=== PATIENT | male | born 1945 | race Caucasian/White ===

== ENCOUNTER 2016-12-01 14:00 | Inpatient (IN) | payer MEDICARE, OTHER ==
[~2016-12-01] VITALS: Ht 185.4 cm; Wt 132.8 kg
--- NOTE | ~2016-12-01 | CON ---
PATIENT'S NAME: GRETCHEN PATIÑO [facility] AGE: 71 Y [address] ROOM: [place] [address] LOCATION: GPCU ADMIT DATE: 12/17/2016 Consultation DISCHARGE DATE: 12/22/2016 FAMILY PHYSICIAN: oSnja Perez ATTENDING PHYSICIAN: Norm Segura REFERRING PHYSICIAN: Blessing Harris MD HISTORY: The patient is a 71-year-old male, known to me. I have placed suprapubic catheter secondary to urinary retention. His catheter is changed every 2 months. The patient is currently hospitalized with multiple medical conditions. The patient is status post left total knee. Staff has noted somewhat bloody drainage from the suprapubic catheter and around the catheter. Since it has been 2 months since his last catheter change, we will proceed with the catheter change. DETAILS OF THE PROCEDURE: The patient's current suprapubic tube was deflated and removed. The area was then prepped with Betadine paint. A 24-Greenlandic Oliva catheter with 5 mL balloon was then introduced. The balloon was inflated. The catheter was then irrigated and irrigated well. The suprapubic site was then cleaned and dried. The patient tolerated the procedure well. PHYSICAL EXAMINATION: The patient's abdomen was obese, but benign. Suprapubic site did not show evidence of infection. ASSESSMENT: The patient with urinary retention. PLAN: Suprapubic catheter change. We will change again in 2 months. MD ALVA MAXWELL/yonatan /[id number] d: 12/22/16 1803 t: 12/28/16 1020, CONSULTATION REPORT
--- NOTE | ~2016-12-01 | OR ---
PATIENT'S NAME: GRETCHEN GAONA [facility] AGE: 71 Y [address] ROOM: [place] [address] LOCATION: GPCU ADMIT DATE: 12/17/2016 OR/Procedure Report DISCHARGE DATE: FAMILY PHYSICIAN: Sonja Perez ATTENDING PHYSICIAN: Norm Guerrier SURGEON: Norm Guerrier MD MATERIAL CLERK: DATE OF PROCEDURE: 12/18/2016 DIAGNOSIS: Severe left knee osteoarthritis. PROCEDURE: Left total knee replacement. ANESTHESIA: General. INDICATIONS: Mr. Gaona's activity is currently limited by severe arthritis of the left knee. He had vascular insufficiency. Cardiology has done interventional procedures to restore adequate blood supply for safe total knee replacement. He has been worked up for coagulopathy. Risks, benefits, and alternatives have all been carefully discussed. DESCRIPTION OF PROCEDURE: Mr. Gaona was taken to the operating room. Prophylactic antibiotics, general anesthetic via an endotracheal tube. Supine on the operating room table. Bump under the left hip. Tourniquet high above the left thigh. Left leg prepared with DuraPrep, draped sterilely. Leg was exsanguinated. Tourniquet inflated to 350 mmHg. A 15 mm midline incision medial to the tibial tubercle and over the center of the patella. Dissection to the extensor mechanism. Medial parapatellar exposure performed. The patella was everted. The patellofemoral ligaments were released. Fat pad was removed. Deep medial collateral ligament was elevated and quad muscles were mobilized. Remnants of the menisci were excised. Remnants of the cruciate ligaments were excised. Using the Hernandez Persona system, the external alignment cutting guide for the tibia was applied. A 2 mm outrigger on the most involved medial side. The guide was locked in place with pins and the cut performed. The femoral cut was made, 5 degrees of valgus. The alignment guide was placed. Excellent alignment with a 10 mm block medial to the anterior suprailiac spine and over the center of the ankle joint. Femur was sized to a 10, cutting guide was placed. Anterior, posterior, and chamfer cuts were made. The tibia, the largest size available was an H. Even this was somewhat on the small size, opted to use a stem in addition with the size component. The guide was placed, drilled for a stem and broached. Patella was prepared for the largest of patella available, a size 41 with a 10 mm section and drilled. Trial components all placed, excellent alignment. The knee was irrigated. Bone was dried. Double batch of Palacos was prepared. Cement was first placed on the tibial component, it was placed. Excess cement PATIENT'S NAME: GRETCHEN GAONA [facility] AGE: 71 Y [address] ROOM: [place] [address] [facility] ADMIT DATE: 12/17/2016 OR/Procedure Report DISCHARGE DATE: FAMILY PHYSICIAN: Sonja Perez ATTENDING PHYSICIAN: Norm Guerrier removed. Femoral component was placed. Excess cement removed. Temporary spacer trial was placed. The knee was extended. The patella was placed. Excess cement removed and held in place with a clamp. Tourniquet was deflated. Hemostasis with bipolar. Once the cement has cured, the trial spacer was removed. Meticulous attention to the hemostasis within the posterior joint. There was no significant bleeding. Again, trialed 14 mm Ultracongruent was the best option. A polyethylene spacer was placed, seated fully. The knee was stable, fully articulated. Patella tracked well, full extension, irrigated. Extensor mechanism closed with multiple layers of #1 Vicryl, subcutaneous tissues were closed with 0 Vicryl, followed by 2-0 Vicryl subcuticular, followed by sandra. Dry sterile dressing placed. Procedure was done without complications. ESTIMATED BLOOD LOSS: From the procedure was less than 50 mL. TOURNIQUET TIME: 90 minutes to recovery room in stable condition. NORM GUERRIER MD DPM/modl /[id number] d: 12/19/16 0117 t: 01/06/17 1004, OPERATIVE SUMMARY
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
--- NOTE | ~2016-12-01 | CON ---
PATIENT'S NAME: GRETCHEN GAONA [facility] AGE: 71 Y [address] ROOM: [place] [address] LOCATION: GPCU ADMIT DATE: 12/17/2016 Consultation DISCHARGE DATE: FAMILY PHYSICIAN: Sonja Perez ATTENDING PHYSICIAN: Norm Segura REFERRING PHYSICIAN: CAROLINE HUANG MD ADDENDUM: The patient was unsure what the recommended duration of anti-platelet therapy following his surgical procedures was. MEDICATIONS UPON ADMISSION: 1. Acetaminophen 1000 mg p.o. q.6 hours p.r.n. pain. 2. Aclidinium bromide 400 mcg inhaled every 12 hours. 3. Albuterol sulfate 1-2 puffs every 4 hours. 4. ASA 81 mg p.o. q.24 hours. 5. Benzonatate 200 mg p.o. t.i.d. 6. Bisoprolol fumarate 5 mg p.o. q.24 hours. 7. Budesonide one amp inhaled b.i.d. 8. Calcium citrate with D one tab p.o. daily. 9. Cholecalciferol one tablet weekly. 10. Cyclobenzaprine 10 mg p.o. at bedtime. 11. Fexofenadine 180 mg p.o. q.24 hours. 12. Finasteride 5 mg p.o. q.24 hours. 13. Fluticasone one spray to the nostril daily. 14. Furosemide 60 mg daily. 15. Gabapentin 100 mg p.o. t.i.d. 16. Hydroxyzine 25 mg p.o. at bedtime. 17. Ipratropium/albuterol p.r.n. 18. Isosorbide 30 mg daily. 19. Levothyroxine sodium 150 mcg daily. 20. Losartan 100 mg p.o. q.24 hours. 21. Lovastatin 20 mg p.o. q.24 hours. 22. MVI 1 p.o. q.24 hours. 23. Omeprazole 40 mg p.o. q.24 hours. 24. Oxybutynin chloride 5 mg p.o. b.i.d. 25. K-Tab 20 mEq p.o. daily. 26. Ropinirole 1 mg p.o. at bedtime. 27. Sertraline 150 mg p.o. q.24 hours. 28. Bactrim DS 1 p.o. b.i.d. for a 10 day course. 29. Sulfasalazine 500 mg p.o. t.i.d. 30. Tamsulosin 0.4 mg p.o. at bedtime. 31. Tetrahydrozoline one drop daily. 32. Tramadol 100 mg p.o. q.i.d. PATIENT'S NAME: GRETCHEN GAONA [facility] AGE: 71 Y [address] ROOM: [address] [place], [place] [address] [facility] ADMIT DATE: 12/17/2016 Consultation DISCHARGE DATE: FAMILY PHYSICIAN: Sonja Perez ATTENDING PHYSICIAN: Norm Segura ALLERGIES: ADVERSE REACTIONS TO MEDICATIONS, ALLERGIES, TRANSFUSIONS: 1. PENICILLINS. 2. TRANSFUSIONS NONE. HABITS: 1. Tobacco 1-1/2 pack per day for 25 years, discontinued since 1980. 2. Probably one-half can of tobacco daily. The patient is not motivated to quit. 3. Alcohol:. a. Teetotaler since 1998. b. The patient used to have an alcoholic beverage weekly. c. Caffeine: None. IMMUNIZATIONS: 1. Positive influenza vaccine. 2. Positive pneumococcal vaccine. 3. Positive tetanus toxoid booster. 4. Positive varicella zoster vaccine. FAMILY HISTORY: Negative for coagulopathy or clotting. His mother of ovarian cancer at 64. SOCIAL HISTORY: The patient was born on a farm outside [place], [place] and attended high school in [place] through the 10th grade. 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 He lives with his in [place]. He has 5 children, all in the [place] area. The patient is not a churchgoer. REVIEW OF SYSTEMS: Negative other than those noted in the history of present illness. PHYSICAL EXAMINATION: VITAL SIGNS: Pulse 72 and regular, blood pressure 105/65, respiratory rate 16, temperature 98.4, height 73 inches, weight 132.8 kg (293 pounds). BMI 38.6 kg/M2. GENERAL: Well-developed, obese, 71-year-old male, in no acute distress. HEENT: Teeth are in poor repair. There are 4-5 stragglers left in his mouth. LYMPH NODES: None palpable. NECK: Without JVD or carotid bruits. SKIN: De La Rosa angiomas. CHEST: Decreased breath sounds. Clear anteriorly. CV: Decreased S1, S2. No audible murmurs, bruits or adventitious sounds. PATIENT'S NAME: GRETCHEN GAONA [facility] AGE: 71 Y [address] ROOM: [place] [address] LOCATION: GPCU ADMIT DATE: 12/17/2016 Consultation DISCHARGE DATE: FAMILY PHYSICIAN: Sonja Perez ATTENDING PHYSICIAN: Norm Segura ABDOMEN: Suprapubic cystotomy. GENITALIA AND RECTAL: Uncircumcised; otherwise not examined. EXTREMITIES: Pulses 2+ in the upper extremities. Actually 1+ in the lower extremities. There is some pretibial hemosiderosis. Prominent Heberden's and Franklin's nodes are scattered throughout the fingers of both hands. The patient has hallux valgus in his toes. NEUROLOGIC: The patient is alert and responsive and moves all 4 extremities. IMPRESSION: A 71-year-old man with an uncharacterized prolonged partial thromboplastin time (and minimally elevated INR today), first documented 08/06/2016 and noted twice since then (the last time on 12/03/2016). Following his initial evaluation in the outpatient area, after the call from Dr. Segura, a mixing study was obtained and the PTT did not correct. Neither the patient nor his family have a history of bleeding diaphyses or thromboembolism. The patient's bleeding with his last vascular procedure was probably due to mechanical factors. The patient probably does not have a factor deficiency as the PTT does not correct with a one-to-one mix. The differential diagnosis includes a subclinical antiphospholipid syndrome or acquired von Willebrand's disease. Patients who have inhibitors of factor VIII and IX are usually quite ill. Conceivably, he could have an acquired inhibitor or factor XI or XII. It is reassuring Mr. Gaona has not clinically experienced excessive bleeding with his recent atherectomy and urologic procedures. We can probably proceed with the left total knee arthroplasty which he certainly needs. Uncharacterized iron deficiency with consequent microcytic anemia. RECOMMEND: DIAGNOSTIC: 1. Hemoccult x3. 2. Antiphospholipid antibodies. 3. Workup the possibility of von Willebrand's disease. TREATMENT: 1. Proceed with surgery. PATIENT EDUCATION: Discussed this approach with the patient and family. MD BUDDY POST/yonatan /[id number] PATIENT'S NAME: GRETCHEN GAONA [facility] AGE: 71 Y [address] ROOM: [place] [address] LOCATION: [facility] ADMIT DATE: 12/17/2016 Consultation DISCHARGE DATE: FAMILY PHYSICIAN: Sonja Perez ATTENDING PHYSICIAN: Norm Segura CC: MD Naz Galvan MD Lyndann M Sokolowski, PA-C d: 12/19/16 1307 t: 12/22/16 0942, CONSULTATION REPORT
--- NOTE | ~2016-12-01 | CON ---
PATIENT'S NAME: GRETCHEN PATIÑO [facility] AGE: 71 Y [address] ROOM: [place] [address] LOCATION: GPCU ADMIT DATE: 12/17/2016 Consultation DISCHARGE DATE: FAMILY PHYSICIAN: Sonja Perez ATTENDING PHYSICIAN: Norm Segura REFERRING PHYSICIAN: CAROLINE HUANG MD ADDENDUM: Acute medical illness is resolved, past surgeries, injuries: 2015 - lumbar laminectomy L2-L3, L3-L4, L4-L5; plus diskectomy L2-L3, L3-L4 for acute cauda equina syndrome. DAV MORENO MD GKB/modl /[id number] d: 12/19/16 1341 t: 12/22/16 0944, CONSULTATION REPORT
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
[~2016-12-01 14:00] MED LIST: ADVAIR 250-501 EACH INH; ALLEGRA180 MG PO; ASPIR 8181 MG PO; ASPIRIN EC81 MG PO; ATARAX25 MG PO; ATROVENT I0.5 MG/2.5 INH; AZULFIDINE500 MG PO; BACID CAPLET1 EACH PO; BENZONATATE200 MG PO; CALCIUM + VITA1 EACH PO; CELEBREX200 MG PO; CIPRO250 MG PO; COZAAR100 MG PO; CPAP INH; CYCLOBENZAPRINE10 MG PO; DITROPAN5 MG PO; DOXYCYCLINE100 MG PO; DRISDOL 5050000 UNIT PO; DULERA 100 MCG/51 EA INH; FLOMAX0.4 MG PO; FLONASE 50 MCG/16 GM NOSE; GLUCAGON/GLUCAGE1 MG SUB-Q; GLUCOPHAGE XR500 MG PO; GLUCOSE1 EACH PO; IMDUR30 MG PO; IPRAT-ALBUT 0.5-3 ML INH; IPRATROPIU0.2 MG/1 M INH; K-TAB ER20 MEQ PO; LASIX40 M1 PO; LEVOXYL150 MCG PO; LEVOXYL50 MCG PO; LOVASTATIN20 MG PO; LOVENOX 4040 MG/0.4 SUB-Q; MIRALAX17 GM PO; MOBIC15 MG PO; MOBIC7.5 MG PO; NEURONTIN100 MG PO; NOVOLOG100 UNIT/M SUB-Q; OXYGEN M-15 INH; OYSTER SHELL C1 EAC4 PO; PERCOCET 5-3251 EACH PO; PRILOSEC40 MG PO; PROSCAR5 MG PO; PULMICORT0.5 MG/2 M INH; REQUIP1 MG PO; SULFADIAZINE PO; TUDORZA PRESS400 MCG PO; TYLENOL EXTRA500 MG PO; TYLENOL WITH C1 EACH PO; ULTRAM50 MG PO; VENTOLIN HFA8 GM INH; VITAL-D RX TAB1 EACH PO; VITAMIN B COMP1 EACH PO; ZEBETA5 M1 PO; ZOLOFT100 MG PO; ZYRTEC10 MG PO; [UNRECOGNIZED DRUG - OTHER] PO; [UNRECOGNIZED DRUG - OTHER] PO
[2016-12-02] MEDS ORDERED: FLOMAX0.4 MG PO (13:46)
[2016-12-02] MEDS ORDERED: DITROPAN5 MG PO (13:46)
[2016-12-02] MEDS ORDERED: CITRACAL+D(315M1 TAB PO (13:46)
[2016-12-02] MEDS ORDERED: BENZONATATE200 MG PO (13:46)
[2016-12-02] MEDS ORDERED: MEVACOR20 MG PO (13:47)
[2016-12-02] MEDS ORDERED: MULTIVITAMINS1 EAC2 PO (13:47)
[2016-12-02] MEDS ORDERED: PLAVIX75 MG PO (13:48)
[2016-12-02] MEDS ORDERED: NEURONTIN100 MG PO (13:48)
[2016-12-02] MEDS ORDERED: DRISDOL 5050000 UNIT PO (13:53)
[2016-12-02] MEDS ORDERED: REQUIP1 MG PO (13:54)
[2016-12-02] MEDS ORDERED: PROSCAR5 MG PO (13:56)
[2016-12-02] MEDS ORDERED: PROAIR RESPICL90 MCG INH (13:57)
[2016-12-02] MEDS ORDERED: TUDORZA PRESS400 MCG INH (13:58)
[2016-12-02] MEDS ORDERED: DUONEB INH (13:59)
[2016-12-17] MEDS ORDERED: HYDROXYZINE HCL25 MG PO (09:40)
[2016-12-17] MEDS ORDERED: LASIX20 MG PO (09:40)
[2016-12-17] MEDS ORDERED: VISINE15 ML OPHTH (09:41)
[2016-12-17] MEDS ORDERED: PROSCAR5 MG PO (09:42)
[2016-12-17] MEDS ORDERED: COZAAR100 MG PO (09:44)
[2016-12-17] MEDS ORDERED: FLOMAX0.4 MG PO (09:45)
[2016-12-17] MEDS ORDERED: DITROPAN5 MG PO (09:46)
[2016-12-17 10:46] LABS: INR - (THERAPEUTIC) 1.15 (0.92-1.07); PROTIME 12.1 SECONDS (9.8-11.4)
[2016-12-17 10:59] LABS: PTT 1 HR 38 SECONDS (25-32); PTT-MIXING STUDY 42 SECONDS (25-32)
[2016-12-17] MEDS ORDERED: BACTRIM DS1 TAB PO (14:40)
--- NOTE | 2016-12-17 17:31 | NUR ---
Significant Event: From [facility] at 1500. Awaiting clearance for OR tomorrow. Suprapubic cath intact. C-Pap at HS. Diabetic, no accuckeck orders at this time. Dr Rios here, see chart for orders. O2 at 2L. Follow up:
--- NOTE | 2016-12-18 04:27 | NUR ---
Significant Event: Alert/oriented x3. Was scheduled for surgery yesterday, postponed until today due to clearance. PTT was 42. Accuchecks AC, HS - 103 at HS - 0 Units per mild sliding scale. Saline lock left lateral forearm. VSS, 2nd SBP was 159, others in 130s, 140s. Suprapubic catheter - 2450 mls out dark yellow urine. CPAP with 2 LPM, 2 LPM per nasal cannula while awake. NPO since midnight. No foot pumps, contraindicated due to Peripheral Vascular Disease. Scheduled Flexeril at HS; [place] at 2106, has slept mostly throughout night, is hard to awake. Follow up:
--- NOTE | 2016-12-18 04:38 | NUR ---
Hematest stools order.
--- NOTE | 2016-12-18 10:20 | NUR ---
0800: I changed his peterson catheter bag, pt states it has not been changed for over two months. It was very foul smelling and visibly unclean.
[2016-12-18 16:20] LABS: CPK 85 IU/L (35-332)
--- NOTE | 2016-12-18 18:47 | NUR ---
Significant Event: Pt up from PACU at 1745. VSS, slightly hypotensive. Placed on telemetry for c/o chest pain in PACU. 4-5L/NC keep sats >90%. IV intact. Oliva intact and drainage well. Pain controlled with Dilaudid BILINGUAL SPEECH LANGUAGE PATHOLOGIST. Dressing C/D/I. CSM WNL. Follow up:
[2016-12-18 19:37] LABS: ANION GAP 13.7 (10.0-19.0); CALCIUM 7.7 mg/dL (8.5-10.5); CREATININE 1.5 mg/dL (0.6-1.3); POTASSIUM 4.7 mMol/L (3.7-5.1)
[2016-12-18 22:51] LABS: CPK 139 IU/L (35-332)
[2016-12-19 04:45] LABS: BASOPHIL % 0.2 %; EOSINOPHIL % 0.1 %; HEMOGLOBIN 9.3 g/dL (11.0-16.0); IMMATURE GRANULOCYTE # 0.1 K/uL (0.0-0.3); IMMATURE GRANULOCYTE % 0.9 %; LYMPHOCYTE # 1.4 K/uL (0.8-4.0); LYMPHOCYTE % 11.3 %; MCH 25.8 pg (27.0-34.0); MCV 83.1 fl (83.0-98.0); MONOCYTE % 7.9 %; MPV 10.5 fl (9.4-12.4); NEUTROPHIL # (ANC) 10.1 K/uL (1.4-9.0); NEUTROPHIL % 79.6 %; NRBC % 0 /100WBC (0-0.00); PLATELET COUNT 209 K/uL (150-450); RBC 3.61 M/uL (3.50-5.50); RDW-CV 19.5 % (11.9-14.6); WBC 12.7 K/uL (4.0-11.0)
[2016-12-19 05:06] LABS: CPK 197 IU/L (35-332)
--- NOTE | 2016-12-19 05:08 | NUR ---
Significant Event: Alert/oriented x3. Accuchecks AC, HS, at HS was 157, O units per mild sliding scale. Dilaudid FEDERAL JUDICIAL LAW CLERK, turned lockout to 60 minutes at 0400, gave Dilaudid 2 mg PO at 0356. CPAP at night, 4 LPM O2 per nasal cannula. Removed CPAP at 0400 due to his moving in bed, accidentally removing it. ETCO2 monitoring. Tele, no calls. VSS. CSM WNL. Plan to dangle him bedside before end of shift. IV infusing in left lateral arm. Dressing C/D/I. EZ wrap. Suprapubic catheter - drained 375 mls. Follow up:
[2016-12-19 05:13] LABS: ANION GAP 12.5 (10.0-19.0); CALCIUM 7.7 mg/dL (8.5-10.5); CREATININE 2.6 mg/dL (0.6-1.3); MAGNESIUM 2.2 mg/dL (1.8-2.6); POTASSIUM 5.5 mMol/L (3.7-5.1)
[2016-12-19 09:22] LABS: BLOOD URINE 250 /UL (NEGATIVE); COLOR URINE YELLOW (YELLOW); GLUCOSE URINE NEGATIVE (NEGATIVE); KETONE URINE NEGATIVE (NEGATIVE); LEUKOCYTES URINE 500 /UL (NEGATIVE); NITRITE URINE POSITIVE (NEGATIVE); PROTEIN URINE 100 mg/dL (NEGATIVE); TURBIDITY URINE 3+ (CLEAR); UROBILINOGEN URINE NORMAL (NORMAL)
[2016-12-19 09:34] LABS: WBC URINE 20-50 #/HPF (NEGATIVE)
[2016-12-19 09:35] LABS: BACTERIA URINE FEW (NEGATIVE); EPITHELIAL URINE RARE #/HPF (NEGATIVE)
[2016-12-19 11:00] LABS: BICARBONATE 21.1 mmol/L (18.0-23.0); PCO2 42 mmHg (35-45); PO2 64 mmHg (80-90)
[2016-12-19 11:31] LABS: ANION GAP 14.2 (10.0-19.0); CALCIUM 7.7 mg/dL (8.5-10.5); CREATININE 3.4 mg/dL (0.6-1.3); POTASSIUM 5.2 mMol/L (3.7-5.1)
--- NOTE | 2016-12-19 13:28 | NUR ---
Significant Event: A/O, MOHEGAN. HAS BEEN RESTLESS, ATTEMPED TO DANGLE AT BEDSIDE, TOLERATED POORLY.HAD BEEN RESTARTED ON DILAUDID RETAIL MAINTENANCE TECHNICIAN DURING NIGHT FOR KNEE PAIN , RETAIL MAINTENANCE TECHNICIAN DC'D THIS PER MD ORDER. HAS SUPRAPUBIC CATH ,CATH IRRIGATED WELL PATIENT REPORTS HAS BEEN 2 MONTHS AGO SINCE CATH WAS CHANGED...HAD 500 MLBOLUS OF NS.HAD ALBUMIN THIS AM. LASST AT BS WAS 108...NEEDS ENC TO EAT.. CSM GOOD TO LEFT LEG. FARHEEN WRAP D/I...USES O2 AND CPAP AT HOME.. Follow up:
--- NOTE | 2016-12-19 17:08 | NUR ---
Significant Event: PT A&O x3. VSS, O2 at 4L per nasal cannula. PT is on endtidal monitoring. IV patent to L)FA. Suprapubic cath intact, drainage around insertion site, to see, is to change it out. Dressing intact to L)knee, pulses thready in feet. Pain well controlled with previously given norco. PT repositioned in bed. Family at bedside. Follow up:
[2016-12-19 18:47] LABS: CREATININE 2.7 mg/dL (0.6-1.3)
[2016-12-19 18:48] LABS: ANION GAP 11.7 (10.0-19.0); CALCIUM 7.4 mg/dL (8.5-10.5)
[2016-12-19 18:49] LABS: POTASSIUM 4.7 mMol/L (3.7-5.1)
[2016-12-19 19:38] LABS: ANION GAP 12.3 (10.0-19.0); CALCIUM 7.5 mg/dL (8.5-10.5); CREATININE 2.6 mg/dL (0.6-1.3); POTASSIUM 4.3 mMol/L (3.7-5.1)
--- NOTE | 2016-12-20 01:14 | NUR ---
PT. IS NOT WEARING CPAP TONIGHT DUE TO NAUSEA.
[2016-12-20 03:26] LABS: MCV 82.8 fl (83.0-98.0); MPV 10.3 fl (9.4-12.4); RBC 2.73 M/uL (3.50-5.50); RDW-CV 20.4 % (11.9-14.6)
[2016-12-20 03:28] LABS: HEMATOCRIT 22.6 % (37.0-53.0); HEMOGLOBIN 7.1 g/dL (11.0-16.0); MCHC 31.4 gm/dL (32.0-36.5); PLATELET COUNT 137 K/uL (150-450)
[2016-12-20 03:45] LABS: ANION GAP 12.2 (10.0-19.0); CALCIUM 7.3 mg/dL (8.5-10.5); CREATININE 1.9 mg/dL (0.6-1.3); MAGNESIUM 2.2 mg/dL (1.8-2.6); POTASSIUM 4.2 mMol/L (3.7-5.1)
[2016-12-20 04:05] LABS: ABSOLUTE NEUTROPHIL CT (ANC) 5.3 K/uL (1.4-9.0); BANDED NEUTROPHIL # 0.6 K/uL (0.0-0.1); BANDED NEUTROPHILS % 8 %; LYMPHOCYTE # 1.4 K/uL (0.8-4.0); LYMPHOCYTE % 20 %; MONOCYTE # 0.3 K/uL (0.0-1.0); SEGMENTED NEUTROPHIL # 4.8 K/uL (1.4-9.0); SEGMENTED NEUTROPHIL % 68 %
--- NOTE | 2016-12-20 05:00 | NUR ---
Significant Event:A/0 X 3, HAS REMAINED IN BED TURNED Q2. REMAINS ON 4L 02 AND ETCO2 MONITORING. ALL OTHER VSS, AFEBRILE. COOPERATIVE THIS EVENING. PAIN BIGGEST ISSUE. 1 NORCO WAS GIVEN WHICH DID NOT DO ANYTHING. AFTER THAT STARTED GIVEN 4 MG PO DILUIDID Q4 WHICH HAS BEEN WORKING, GIVEN LAST AT 0223. ALSO ICE PACKS OFF AND ON. SUPRAPUBIC CATH IS TO BE CHANGED BY JOHNNY, ACTUAL CATH TUBE IS IN ROOM AT BEDSIDE. HAD 700 UOP. Follow up:
[2016-12-20 13:38] LABS: HEMATOCRIT 23.5 % (37.0-53.0); MCH 25.9 pg (27.0-34.0); MCHC 30.2 gm/dL (32.0-36.5); MCV 85.8 fl (83.0-98.0); PLATELET COUNT 129 K/uL (150-450); RBC 2.74 M/uL (3.50-5.50); RDW-CV 20.8 % (11.9-14.6); WBC 7.7 K/uL (4.0-11.0)
[2016-12-20 13:58] LABS: HEMOGLOBIN 7.1 g/dL (11.0-16.0)
[2016-12-20 14:02] LABS: ABSOLUTE NEUTROPHIL CT (ANC) 6.9 K/uL (1.4-9.0); BANDED NEUTROPHIL # 0.5 K/uL (0.0-0.1); BANDED NEUTROPHILS % 7 %; LYMPHOCYTE # 0.5 K/uL (0.8-4.0); LYMPHOCYTE % 7 %; MONOCYTE # 0.2 K/uL (0.0-1.0); SEGMENTED NEUTROPHIL # 6.3 K/uL (1.4-9.0); SEGMENTED NEUTROPHIL % 82 %
[2016-12-20 16:29] LABS: ANION GAP 12.1 (10.0-19.0); CALCIUM 7.8 mg/dL (8.5-10.5); CREATININE 1.5 mg/dL (0.6-1.3); POTASSIUM 4.1 mMol/L (3.7-5.1)
--- NOTE | 2016-12-20 17:14 | NUR ---
Significant Event: PT. A/O X3 THIS A.M. FOUND PT. LATER DAY WITHOUT 02 ON, CONFUSED TO SURROUNDINGS AND SHORT OF BREATH. ETCO2 32. SATS 90%. PLACED ON BIPAP PER RT. HBG 7.1 THIS A.M. AND AGAIN AT 1430. CHANGED LT. KNEE DRESSING TO ISLAND BARRIER. HAS INTACT SAYDA. LT. LEG SWOLLEN FROM UPPER THIGH TO LOWER CALF. Follow up: NEEDS TWO UNITS PRBC'S. AND LASIX IV BETWEEN, INFUSING THEM SLOWLY. HEMATEST STOOL. NONE ON DAYSHIFT. ONLY LT. ARM B/P'S HAS FISTULA IN RT. ARM
[2016-12-21 05:24] LABS: HEMATOCRIT 27.4 % (37.0-53.0); HEMOGLOBIN 8.7 g/dL (11.0-16.0); MCH 26.2 pg (27.0-34.0); MCHC 31.8 gm/dL (32.0-36.5); MCV 82.5 fl (83.0-98.0); MPV 9.9 fl (9.4-12.4); PLATELET COUNT 143 K/uL (150-450); RBC 3.32 M/uL (3.50-5.50); WBC 8.7 K/uL (4.0-11.0)
--- NOTE | 2016-12-21 05:30 | NUR ---
Significant Event: RECIEVED 2 UNITS RBC'S WITH 40 IV LASIX BETWEEN. HE HAS BEEN NAUSEOUS OFF AND ON THE ENTIRE EVENING WITH PROJECTILE EMESIS. HOOKED UP SUCTION IN ROOM. ZOFRAN GIVEN X 2. LUNGS REMAIN WHEEZY AND COARSE, RT TREATMENTS DO HELP FOR A WHILE. NEVER HAD ANY PAIN THIS EVENING AND NEVER REQUESTED ANY PAIN MEDS. ONLY SCHEDULED TYLENOL GIVEN. Follow up:
[2016-12-21 05:41] LABS: ANION GAP 9.8 (10.0-19.0); BLOOD UREA NITROGEN 20 mg/dL (6-24); CALCIUM 7.8 mg/dL (8.5-10.5); CHLORIDE 106 mMol/L (96-110); CO2 27 mMol/L (22-32); POTASSIUM 3.8 mMol/L (3.7-5.1); SODIUM 139 mMol/L (135-145)
[2016-12-21 05:43] LABS: ESTIMATED GFR (MDRD EQUATION) > 60
[2016-12-21 06:17] LABS: ABSOLUTE NEUTROPHIL CT (ANC) 7.9 K/uL (1.4-9.0); BANDED NEUTROPHIL # 0.3 K/uL (0.0-0.1); BANDED NEUTROPHILS % 4 %; LYMPHOCYTE # 0.5 K/uL (0.8-4.0); LYMPHOCYTE % 6 %; MONOCYTE # 0.2 K/uL (0.0-1.0); SEGMENTED NEUTROPHIL # 7.6 K/uL (1.4-9.0); SEGMENTED NEUTROPHIL % 87 %
--- NOTE | 2016-12-21 10:02 | NUR ---
A - PT SCREENED D/T LOS. PT S/P L) TKA. GLU 142, BUN/ELECTRICAL DESIGN ENGINEER 20/1.0. PT W/ 1+ EDEMA TO FEET/ANKLES. PT W/ NAUSEA YESTERDAY EVENING. DIET: DIABETIC W/ INTAKE 10-25%. TRIED TO VISIT BUT PT SLEEPING SOUNDLY. EST NEEDS: [id number] KCALS, 83-100 GM PROTEIN, 1 ML/KCAL FLUIDS. D - AT RISK W/ INADEQUATE ORAL INTAKE R/T DECREASED APPETITE AEB INTAKE RECORD. I - GOAL: 50% OR BETTER INTAKE BY DISMISSAL. M/E - 1) WILL OFFER GLUCERNA BID W/ BF AND DINNER AND F/U ON INTAKE IN 2-4 DAYS.
--- NOTE | 2016-12-21 14:15 | NUR ---
Introduced self and role of care management to patient. Patient lives in [place] with his . He says he is going home tomorrow. He says he went as far today with therapy as he goes at home. He uses a scooter at home. Has a walker and 2 canes at home. Has a ramp into his home. He has O2 at home and uses it 24/7. Every thing he uses is on one level. His bathroom is handicapped accessible. His son comes after work and makes their evening meal for them. Daughter helps as needed also. He has had [facility] in the past and would like it again. He would like to use [facility] [place]. Says his daughter will help but her just broke his leg so she has to take care of him too. He is uncertain if he will go home or to his daughter's home. He will find out and let us know. Says his is not able to help him. Called and spoke with Ирина at [facility] in [place]. They will accept him on service. On day of discharge will need to call their office at [phone] and leave a message telling them when patient is going home and if going to his home or his daughter's home and which daughter he is going to stay with. Also fax face to face form and discharge instructions and discharge form to [facility] at [phone]. Will follow.
--- NOTE | 2016-12-21 19:18 | NUR ---
Significant Event: A/O X 3. MUCH BETTER TODAY. JULIANN. PAIN CONTROL. AFEBRILE. AMBULATES 15 FEET WITH PT. THIS IS ABOUT HIS BASELINE. HR SR IN 70'S. SATS 96% ON [address] TURNER INTO REPLACE SUPERPUBIC CATHETER. PT. JULIANN. WELL. Follow up: PLAN DISM. TO HOME TOMORROW
[2016-12-22 04:27] LABS: BASOPHIL % 0.4 %; EOSINOPHIL % 0.6 %; HEMATOCRIT 26.5 % (37.0-53.0); HEMOGLOBIN 8.3 g/dL (11.0-16.0); IMMATURE GRANULOCYTE # 0.1 K/uL (0.0-0.3); IMMATURE GRANULOCYTE % 1.3 %; LYMPHOCYTE # 0.8 K/uL (0.8-4.0); LYMPHOCYTE % 11.2 %; MCH 26.1 pg (27.0-34.0); MCHC 31.3 gm/dL (32.0-36.5); MCV 83.3 fl (83.0-98.0); MONOCYTE # 0.4 K/uL (0.0-1.0); MONOCYTE % 5.7 %; MPV 9.6 fl (9.4-12.4); NEUTROPHIL # (ANC) 5.5 K/uL (1.4-9.0); NEUTROPHIL % 80.8 %; NRBC % 0 /100WBC (0-0.00); PLATELET COUNT 140 K/uL (150-450); RBC 3.18 M/uL (3.50-5.50); RDW-CV 21.3 % (11.9-14.6); WBC 6.8 K/uL (4.0-11.0)
[2016-12-22 04:45] LABS: BLOOD UREA NITROGEN 13 mg/dL (6-24); CALCIUM 7.7 mg/dL (8.5-10.5); CHLORIDE 106 mMol/L (96-110); CO2 26 mMol/L (22-32); CREATININE 0.8 mg/dL (0.6-1.3); ESTIMATED GFR (MDRD EQUATION) > 60; SODIUM 139 mMol/L (135-145)
--- NOTE | 2016-12-22 05:14 | NUR ---
A/O. HR 70s. SBP 130-160s. AFEBRILE. 3L O2 NC. CPAP NIGHT WITH 3L. TYLENOL SCHEDULED. ICE APPLIED TO L) KNEE. BMx2 LARGE. 1A UP TO COMMODE. POSSIBLE. HOME TODAY.
[2016-12-22] MEDS ORDERED: COLACE100 MG PO (13:51)
[2016-12-22] MEDS ORDERED: LOVENOX 3030 MG/0.3 SUB-Q (13:52)
[2016-12-22] MEDS ORDERED: FEOSOL325 MG PO (13:53)
[2016-12-22] MEDS ORDERED: NORCO 5-325 TA1 EACH PO (14:10)
--- NOTE | 2016-12-22 18:42 | NUR ---
Significant Event: ALERT & ORIENTED BUT FORGETFUL, [place]. VSS, AFEBRILE, ON 3L O2 HOME DOSE, SOB AT REST AND DYSPNEA ON EXERTION, WHEEZING. GAUZE AND TUBIGRIP GIVEN FOR DRESSING CHANGE TO KNEE. LOVENOX ADMIN DISCUSSED. DISCHARGE INSTRUCTIONS DISCUSSED, VERBALIZED UNDERSTANDING. IV REMOVED. BELONGINGS WITH PT. ESCORTED TO VEHICLE, FAMILY TO TRANSPORT. [facility] FAXED AND CALLED. FOLLOW UP WITH PCP REGARDING CLOTTING LABS AFTER -. NOTE FROM TIFFANIE FAXED TO DIONE MERA.
== END 2016-12-22 16:33 | disposition home health service (06) | DRG 469 ==
LOC: G3N 12-17 07:55 → GPCU 12-19 15:48
PROVIDERS: Hospitalist; Internal Medicine; Internal Medicine Hematology & Oncology; ADMIT Orthopaedic Surgery
PROC: 0SRD0J9 Replacement of Left Knee Joint with Synthetic Substitute, Cemented, Open Approach (ICD-10-PCS; principal; 2016-12-18)
PROC: 30250N1 (ICD-10-PCS; 2016-12-20)
DX: M17.12 Unilateral primary osteoarthritis, left knee (principal); J96.21 Acute and chronic respiratory failure with hypoxia; N17.9 Acute kidney failure, unspecified; I95.89 Other hypotension; D68.9 Coagulation defect, unspecified; I50.22 Chronic systolic (congestive) heart failure; I11.0 Hypertensive heart disease with heart failure; D62 Acute posthemorrhagic anemia; N39.0 Urinary tract infection, site not specified; T83.510A Infection and inflammatory reaction due to cystostomy catheter, initial encounter; D50.9 Iron deficiency anemia, unspecified; E11.9 Type 2 diabetes mellitus without complications; E78.5 Hyperlipidemia, unspecified; F32.9 Major depressive disorder, single episode, unspecified; G47.33 Obstructive sleep apnea (adult) (pediatric); I25.10 Atherosclerotic heart disease of native coronary artery without angina pectoris; I73.9 Peripheral vascular disease, unspecified; J44.9 Chronic obstructive pulmonary disease, unspecified; J45.909 Unspecified asthma, uncomplicated; K52.9 Noninfective gastroenteritis and colitis, unspecified; Z93.59 Other cystostomy status
CPT/HCPCS: C1713; C1776; J0696; J1100; J1170; J1650; J1940; J2001; J2185; J2405; J2550; J3010; J7030; J7040; J7050; J7120; P9016; P9045